=== PATIENT | male | born 1985 | race Caucasian/White ===

== ENCOUNTER 2023-06-22 14:43 | Emergency (ER) | payer BC ==
[2023-06-22] MEDS ORDERED: Lidocaine 1% with EPINEPHrine 1:100,000 10 ML MDV INFILT ONE (14:44)
[2023-06-22 14:59] VITALS: PULSE 65
[2023-06-22] MEDS ORDERED: Bacitracin Oint 1 GM U/D Packet TOP ONE (15:06)
[2023-06-22] MEDS: Diphtheria,Pertussis(Acell),Tetanus Vaccine 0.5 ML Syringe IM ONE (15:10)
[2023-06-22 16:38] VITALS: BP 135/89
== END 2023-06-22 15:50 | disposition home or self-care (01) ==
LOC: FB.ED 14:43
DX: S01.01XA Laceration without foreign body of scalp, initial encounter (principal); R03.0 Elevated blood-pressure reading, without diagnosis of hypertension; Z23 Encounter for immunization; Z88.0 Allergy status to penicillin; W22.8XXA Striking against or struck by other objects, initial encounter
CPT/HCPCS: 12004; 90471; 90715; 99283-25

== ENCOUNTER 2024-08-17 17:36 | Emergency (ER) | payer BC ==
[2024-08-17] MEDS: Aspirin 81 MG Tab.Chew PO ONE (17:59)
[2024-08-17 18:01] LABS: HEMATOCRIT 49.4 % (38.3-50.1); HEMOGLOBIN 17.6 g/dL (12.9-17.7); MEAN CORPUSCULAR HEMOGLOBIN 31.8 pg (27.0-33.3); MEAN CORPUSCULAR HGB CONC 35.7 g/dL (28.7-35.3); MEAN PLATELET VOLUME 7.8 fL (6.7-11.0); PLATELET COUNT,PLT 239 x10(3)uL (117-477); RED BLOOD CELL COUNT 5.55 x10(6)uL (3.90-5.90); RED CELL DISTRIBUTION WIDTH 13.3 % (12.4-15.0); WHITE BLOOD CELL COUNT,WBC 24.3 x10-3/uL (3.2-10.1)
[2024-08-17] MEDS: LORazepam 2 MG/ML SDV IVPUSH ONE (18:02)
[2024-08-17 18:04] LABS: BLOOD UREA NITROGEN,BUN 8 mg/dL (7-18); BUN/CREATININE RATIO 6.7 (9-20); CALCIUM 8.9 mg/dL (8.6-10.2); CARBON DIOXIDE,CO2 24 mmol/L (21-32); CHLORIDE,CL 105 mmol/L (100-110); CREATININE 1.2 mg/dL (0.70-1.30); ESTIMATED GFR 79 mL/min (>60); GLUCOSE RANDOM 116 mg/dL (80-116); SODIUM,NA 141 mmol/L (135-145)
[2024-08-17 18:10] LABS: A/G RATIO 1.1; ALANINE AMINOTRANSFERASE,ALT 25 U/L (12-36); ALBUMIN 3.5 g/dL (3.5-5.2); ALKALINE PHOSPHATASE 79 IU/L (56-112); ASPARTATE AMNIOTRANSFERASE,AST 12 IU/L (5-25); PROTEIN TOTAL,TP 6.6 g/dL (6.0-8.0)
[2024-08-17 18:16] LABS: TROPONIN I 4.8 pg/mL (4.0-60.3)
[2024-08-17 18:54] LABS: EOSINOPHILS PERCENT MAN 1 % (0-5); LYMPHOCYTES PERCENT MAN 4 % (13-37); MONOCYTES PERCENT MAN 4 % (4-12); SEG NEUTROPHILS PERCENT MAN 91 % (46-82)
[2024-08-17] MEDS: Iopamidol 755 Mg/ML 100 ML Bottle IV SCH (19:14)
[2024-08-17] MEDS: Sodium Chloride 0.9% 10 ML Syringe FLUSH PRN (19:49)
[2024-08-17] MEDS: Albuterol/Ipratropium 3.0-0.5 MG/3 ML Neb Soln NEB ONE ×2 (19:49→22:00)
[2024-08-17] MEDS: methylPREDNISolone Sodium Succinate 125 MG/2 ML SDV IVPUSH ONE (19:49)
[2024-08-17] MEDS: Meropenem 1 GM SDV IVPUSH ONE (19:55)
[2024-08-17] MEDS: VANCOmycin 1.5 GM/300 ML 1.5 GM in Premix Bag 1 BAG IV ONE (20:03)
[2024-08-17 20:07] LABS: LACTIC ACID 1.6 mmol/L (0.4-2.0)
[2024-08-17] MEDS: Sodium Chloride 0.9% 1,000 ML IV SCH ×2 (20:09→21:19)
[2024-08-17 20:10] LABS: BASE EXCESS VENOUS,POC -4 mmol/L (-2 - 3+); PCO2 VENOUS,POC 41 mmHg (41-51); PH VENOUS,POC 7.33 pH Units (7.32-7.43)
[2024-08-18] MEDS: LORazepam 1 MG Tab PO ONE (00:33)
[2024-08-18 00:36] VITALS: BP 98/47; PULSE 98
[2024-08-18] MEDS: Albuterol/Ipratropium 3.0-0.5 MG/3 ML Neb Soln NEB ONE (00:50)
[2024-08-18] MEDS: Magnesium Sulfate/Water Premix 2 GM in Premix Bag 1 BAG IV ONE (00:55)
[2024-08-18] MEDS: Morphine 2 MG/ML SYRINGE IM ONE (02:26)
[2024-08-18] MEDS: Acetaminophen 325 MG Tab PO ONE (03:59)
== END 2024-08-18 04:10 ==
LOC: FB.ED 17:36
DX: J84.114 Acute interstitial pneumonitis (principal); F17.210 Nicotine dependence, cigarettes, uncomplicated; Z88.0 Allergy status to penicillin
CPT/HCPCS: 36415; 71045; 71275; 80053; 83605; 83880; 84484; 85025; 85379; 87040; 87428-QW; 93005; 93010; 94640; 96361; 96365; 96367; 96372; 96375; 99285; 99285-25; A9270-GY; J2060; J2185; J2270; J2919; J3372; J3475; J7030; J7620; Q9967